=== PATIENT | female | born 1980 | race Caucasian/White ===

== ENCOUNTER 2020-06-10 05:29 | Inpatient (IN) | payer MEDICAID ==
[2020-06-03 15:42] LABS: BASOPHILS % (AUTO) 0.2 % (0-1); EOSINOPHILS # (AUTO) 0.3 X10'3 (0-0.9); EOSINOPHILS % (AUTO) 4.1 % (0-6); LYMPHOCYTES # (AUTO) 2.2 X10'3 (1.1-4.8); MEAN CORPUSCULAR HGB CONC 33.4 g/dL (33.0-36.5); MEAN PLATELET VOLUME 7.4 FL (7.4-10.4); MONOCYTES # (AUTO) 0.4 X10'3 (0-0.9); MONOCYTES % (AUTO) 5.5 % (2-12); NEUTROPHILS # (AUTO) 3.8 X10'3 (1.8-7.7); NEUTROPHILS % (AUTO) 57.2 % (42-75); PRE OP HEMATOCRIT 37.2 % (35.0-45.0); PRE OP HEMOGLOBIN 12.4 g/dL (12.0-16.0); PRE OP PLATELET COUNT 243 X10'3 (140-440); RED BLOOD COUNT 4.13 X10'6 (4.20-5.60); RED CELL DISTRIBUTION WIDTH 13.5 % (11.5-14.5)
[2020-06-03 15:55] LABS: PRE OP PROTIME 10.4 SECONDS (9.0-12.0)
[2020-06-03 16:26] LABS: ALBUMIN 3.7 G/DL (3.4-5.0); ALBUMIN/GLOBULIN RATIO 1.1 (1.1-1.5); ALKALINE PHOSPHATASE 59 IU/L (46-116); BLOOD UREA NITROGEN 16 MG/DL (7-18); BUN/CREATININE RATIO 21.9 (6.6-38.0); CALCIUM 9.2 MG/DL (8.5-10.1); CHLORIDE 106 MMOL/L (99-107); CREATININE 0.73 MG/DL (0.40-0.90); PRE OP ALT 59 U/L (30-65); PRE OP ANION GAP 8 (8-16); PRE OP AST 19 U/L (10-37); PRE OP BILIRUB, TOTAL 0.2 MG/DL (0.0-1.0); PRE OP GLUCOSE 97 MG/DL (70-104); PRE OP POTASSIUM 4.6 MMOL/L (3.4-5.1); PRE OP SODIUM 141 MMOL/L (135-145); TOTAL CARBON DIOXIDE 26.7 MMOL/L (24-32); eGFR 89 ML/MIN
[~2020-06-10] VITALS: Ht 162.6 cm; Wt 90.2 kg
[2020-06-10] VITALS (19 sets, daily range): BP systolic 112–149; BP diastolic 61–93
[~2020-06-10 05:29] MED LIST: ALBU8.5H8 INH; APIX5TAB3 PO; BUS15T PO; CHOL20004 PO; ESCI5TAB17 PO; GABA300C PO; LEVO100S PO; MULT-1085 PO; OMEP20TA23 PO
[2020-06-10] MEDS ORDERED: cefazolin/dext.iso 2gm/100ml 100 ML IV ONE (05:30)
[2020-06-10] MEDS ORDERED: famotidine 20mg tablet PO ONE (05:30)
--- NOTE | 2020-06-10 06:15 | NUR ---
Patient in room [facility]. I have received report from DOUGIE Cobos and had the opportunity to ask questions and assume patient care.
[2020-06-10] MEDS: dextrose 5%-lactated ringers 1,000 ML IV SCH ×2 (06:25→15:33)
[2020-06-10] MEDS ORDERED: BUPIVAcaine/PF 2.5 mg/ml (0.25%) 30ml vial ONE (06:36)
[2020-06-10] MEDS ORDERED: LIDOcaine 1% 30ml preserv. free vial ONE (06:36)
--- NOTE | 2020-06-10 06:56 | NUR ---
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
[2020-06-10] MEDS ORDERED: BUPIVAcaine/PF 2.5mg/ml (0.25%) 10ml vial ONE (07:03)
[2020-06-10] MEDS ORDERED: BUPIVACAINE liposomal/PF 13.3 MG/ML vial IM ONE (07:03)
[2020-06-10] MEDS ORDERED: MIDAZolam 1 MG/ML 5ML VIAL ONE (07:33)
[2020-06-10] MEDS ORDERED: rocuronium 10mg/ml inj IV ONE (07:33)
[2020-06-10] MEDS ORDERED: fentaNYL /PF 50mcg/ml 5ml ampule ONE (07:33)
[2020-06-10] MEDS ORDERED: etomidate 2mg/ml inj. ONE (07:34)
[2020-06-10] MEDS ORDERED: sevoflurane 250ml liquid IH ONE (07:38)
[2020-06-10] MEDS ORDERED: dexamethasone sod phosphate 4mg/ml inj. ONE (07:50)
[2020-06-10] MEDS ORDERED: morphine 4 MG/ML inj SYRINge IV PRN (09:10)
[2020-06-10] MEDS ORDERED: ringers solution, lacted 1,000 ML IV SCH (09:10)
[2020-06-10] MEDS ORDERED: meperidine/PF 25mg/ml syringe IV PRN ×3 (09:10)
[2020-06-10] MEDS ORDERED: proCHLORperazine 10 MG/2 ml inj IV PRN (09:10)
[2020-06-10] MEDS ORDERED: morphine 2 MG/ML inj. syringe IV PRN (09:10)
[2020-06-10] MEDS ORDERED: ondansetron/PF 4mg/2ml inj IV PRN (09:10)
[2020-06-10] MEDS ORDERED: ondansetron/PF 4mg/2ml inj ONE (11:45)
[2020-06-10] MEDS ORDERED: sugammadex 200mg/2ml injection IV ONE (11:57)
--- NOTE | 2020-06-10 12:15 | NUR ---
ADMITTED TO PACU FROM OR ACCOMPANIED BY ANESTHESIA. INTIAL PHYSICAL ASSESSMENT DONE AND RECORDED. REPORT RECEIVED FROM ANESTHESIA.
[2020-06-10] MEDS ORDERED: acetaminophen 1,000mg/100ml IV 100 ML IV ONE (12:22)
[2020-06-10] MEDS ORDERED: albuterol 2.5 MG/3 ML nebule NEB PRN (12:30)
[2020-06-10] MEDS ORDERED: CADD PCA waste documentation MC PRN (12:35)
[2020-06-10] MEDS ORDERED: naloxone 0.4 mg/ml inj IV PRN (12:35)
[2020-06-10] MEDS ORDERED: fentaNYL/PF 50MCG/1 ML 2ML syringe ONE (12:58)
[2020-06-10] MEDS: fentaNYL/PF 50MCG/1 ML 2ML syringe IV PRN ×3 (13:00→13:30)
--- NOTE | 2020-06-10 13:30 | NUR ---
PACU DISCHARGE CRITERIA MET, REPORT GIVEN TO FLOOR. DENIES PAIN OR DISCOMFORT, TRANSFERRED TO ROOM IN STABLE GOOD CONDITION.
--- NOTE | 2020-06-10 14:20 | NUR ---
Patient in room [facility]. I have received report from Minnie CONSTANTINOarmed security professional and had the opportunity to ask questions and assume patient care.
[2020-06-10] MEDS: HYDROmorphone/NS 1 mg/ml CADD 50 ML IV SCH ×7 (14:22→23:11)
[2020-06-10] MEDS: gabapentin 300mg capsule PO SCH (16:20)
--- NOTE | 2020-06-10 17:26 | NUR ---
Called Dr Lopez regarding patient has disorder Long chain fatty acid Dehydrogenase. Wanted to know if we should accu check patient, also wanted to know if he wanted me to give that extra bolus of Dilaudid Cadd he ordered prior. Received orders to hold off on 1 time bolus 0.5mg Dilaudid cadd and also received orders to Accucheck patient Q6H and to do a CK level at 1800.
[2020-06-10 18:05] LABS: CREATINE KINASE 492 U/L (26-192)
--- NOTE | 2020-06-10 18:44 | NUR ---
Problems reprioritized. Patient report given, questions answered & plan of care reviewed with Yandel CONSTANTINO.
[2020-06-10] MEDS: ketorolac tromethamine 15mg/ml inj. IV SCH (20:44)
[2020-06-10] MEDS: busPIRone 15mg tablet PO SCH (20:46)
[2020-06-10] MEDS: pantoprazole 40mg Tablet.DR PO SCH (20:46)
[2020-06-10] MEDS: enoxaparin 30mg/0.3ml syringe SUBCUT SCH (20:47)
[2020-06-11] VITALS: BP 98/58
[2020-06-11] MEDS: gabapentin 300mg capsule PO SCH ×4 (00:12→23:03)
--- NOTE | 2020-06-11 00:19 | NUR ---
patient refused to walk at this time, we had talked about her walking at midnight the hour prior and she had agreed to it. I educated her on the importance of walking, and the fact that it can help with the pain she is feeling.
--- NOTE | 2020-06-11 00:30 | NUR ---
I called surgeon to inform him of patients pain level, with the Dilaudid CADD and Toradol that had been given at 2130. Surgeon did not want to increase the CADD pump, or give another bolus. I was told to talk to patient to see if she wanted to stop the CADD pump and start oral pain medications (percocet). patient would like to think about it.
[2020-06-11] MEDS: HYDROmorphone/NS 1 mg/ml CADD 50 ML IV SCH (01:00)
--- NOTE | 2020-06-11 01:45 | NUR ---
patient is requesting to stay on CADD pump and reevaluate latr this morning. patient is resting quietly and not complaining of pain at this time Addendum: 06/11/20 at 0538 by Yandel Babcock RN *later
[2020-06-11] MEDS: ketorolac tromethamine 15mg/ml inj. IV SCH ×4 (04:30→23:08)
--- NOTE | 2020-06-11 04:30 | NUR ---
Patient has decided that she would like to try Percocet for pain. CADD pump dc'd. Patient is refusing to walk until she gets her Percocet and it takes effect.
[2020-06-11] MEDS: dextrose 5%-lactated ringers 1,000 ML IV SCH (04:35)
[2020-06-11] MEDS ORDERED: oxyCODONE/APAP 10/325mg tablet PO PRN (04:45)
[2020-06-11] MEDS: oxyCODONE/APAP 10/325mg tablet PO PRN ×4 (05:10→21:38)
[2020-06-11 06:13] LABS: BASOPHILS % (AUTO) 0.1 % (0-1); EOSINOPHILS % (AUTO) 0.3 % (0-6); HEMOGLOBIN 11.4 g/dl (12.0-16.0); LYMPHOCYTES % (AUTO) 21.6 % (21-51); MEAN CORPUSCULAR HEMOGLOBIN 30.8 PG (27.0-31.0); MEAN CORPUSCULAR HGB CONC 34.5 g/dL (33.0-36.5); MEAN CORPUSCULAR VOLUME 89.4 FL (78-98); MEAN PLATELET VOLUME 7.5 FL (7.4-10.4); MONOCYTES # (AUTO) 0.7 X10'3 (0-0.9); MONOCYTES % (AUTO) 7.8 % (2-12); NEUTROPHILS # (AUTO) 6.5 X10'3 (1.8-7.7); NEUTROPHILS % (AUTO) 70.2 % (42-75); PLATELET COUNT 257 X10'3 (140-440); RED BLOOD COUNT 3.69 X10'6 (4.20-5.60); RED CELL DISTRIBUTION WIDTH 13.6 % (11.5-14.5); WHITE BLOOD COUNT 9.3 X10'3 (4.5-11.0)
[2020-06-11 06:23] LABS: ALBUMIN 3.1 G/DL (3.4-5.0); ANION GAP 5 (8-16); BLOOD UREA NITROGEN 12 MG/DL (7-18); BUN/CREATININE RATIO 18.5 (6.6-38.0); CALCIUM 8.2 MG/DL (8.5-10.1); CHLORIDE 106 MMOL/L (99-107); CREATINE KINASE 683 U/L (26-192); CREATININE 0.65 MG/DL (0.40-0.90); GLUCOSE 109 MG/DL (70-104); POTASSIUM 3.7 MMOL/L (3.5-5.1); SODIUM 140 MMOL/L (135-145); TOTAL CARBON DIOXIDE 28.7 MMOL/L (24-32); eGFR > 90 ML/MIN
--- NOTE | 2020-06-11 06:35 | NUR ---
Problems reprioritized. Patient report given, questions answered & plan of care reviewed with DOUGIE Rose.
--- NOTE | 2020-06-11 06:35 | NUR ---
Patient in room [facility]. I have received report from Yandel CONSTANTINO and had the opportunity to ask questions and assume patient care.
[2020-06-11 06:53] VITALS: BP 108/66
--- NOTE | 2020-06-11 06:59 | NUR ---
Patient in room [facility]. I have received report from DOUGIE Humphries and had the opportunity to ask questions and assume patient care.
[2020-06-11] MEDS: pantoprazole 40mg Tablet.DR PO SCH ×2 (07:54→19:28)
[2020-06-11] MEDS: ESCITALOPRAM OXALATE 5 MG TABLET PO SCH (07:55)
[2020-06-11] MEDS: busPIRone 15mg tablet PO SCH ×2 (07:55→19:27)
[2020-06-11] MEDS: enoxaparin 30mg/0.3ml syringe SUBCUT SCH ×2 (07:57→19:28)
[2020-06-11] MEDS: LEVOCARNITINE 100 MG/ML PO SCH (08:01)
[2020-06-11] MEDS: [UNRECOGNIZED DRUG - OTHER] PO SCH (08:01)
[2020-06-11 10:09] VITALS: BP 135/77
[2020-06-11] MEDS ORDERED: LORazepam 2 mg/ml vial IV ONE (10:10)
[2020-06-11] MEDS ORDERED: LORazepam 2 mg/ml vial IV PRN (10:10)
[2020-06-11 12:50] LABS: CREATINE KINASE 867 U/L (26-192)
--- NOTE | 2020-06-11 15:04 | NUR ---
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 Per previous RD note 2019 admit following TC to Yanely Castro RD, CSP at [facility] recommends patient receive 30% of calories from fat, 15-20% of that range being long chain fats and the remainder from MCT oil ranging from 20-25 grams per day; she recommends providing fat on the lower range and even 10% if able with current condition. RD d/w RN regarding supplemental MCT oil recs as seen above; pt does not have MCT this admit and not in pharmacy at this time. RN reports TC w/ pt MD at [facility] who recommends frequent high carb intake/snacking, eating at least every 4 hours, and D10/NS for fluid maintenance. Dietary notified to send puddings between meals, gatorade/crackers TIDWM for additional carbs. Addendum: 06/11/20 at [address] Amended: Links added. 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 Per previous RD note 2019 admit following TC to Yanely Castro RD, CSP at [facility] recommends patient receive 30% of calories from fat, 15-20% of that range being long chain fats and the remainder from MCT oil ranging from 20-25 grams per day; she recommends providing fat on the lower range and even 10% if able with current condition. RD d/w RN regarding supplemental MCT oil recs as seen above; pt does not have MCT this admit and not in pharmacy at this time. RN reports TC w/ pt MD at [facility] who recommends frequent high carb intake/snacking, eating at least every 4 hours, and D10/NS for fluid maintenance. Dietary notified to send puddings between meals, gatorade/crackers TIDWM for additional carbs. RD d/w RN recommends heart healthy diet as pt currenty on regular diet in order to limit overall saturated fat intake; no cookies, cakes, brownies at this time given saturated fat content.
[2020-06-11] MEDS: ondansetron/PF 4mg/2ml inj IV PRN (15:05)
[2020-06-11] MEDS ORDERED: oxyCODONE SR 40mg (sust release) tab PO ONE (16:35)
--- NOTE | 2020-06-11 16:39 | NUR ---
Patient refused both scheduled Toradol medication today. Patient verbalized concern for her kidneys and does not want to take that medication for that reason. Patient also refuses to use her abdominal binder due to the pain it causes when trying to put it on.
[2020-06-11] MEDS ORDERED: Dextrose 10%-water IV solution 1,000 ML IV SCH (16:40)
[2020-06-11] MEDS ORDERED: DEXTROSE 50% IV SCH (17:49)
[2020-06-11] MEDS ORDERED: TOTAL PARENTERAL NUTRITION IV SCH (17:49)
[2020-06-11] MEDS ORDERED: WATER IV SCH (17:49)
--- NOTE | 2020-06-11 18:25 | NUR ---
Patient in room [facility]. I have received report from DOUGIE Rose and had the opportunity to ask questions and assume patient care.
--- NOTE | 2020-06-11 18:35 | NUR ---
Problems reprioritized. Patient report given, questions answered & plan of care reviewed with Jennifer Severino RN.
[2020-06-11] MEDS: HYDROmorphone 1 mg/ml syringe IV PRN ×2 (18:52→23:03)
[2020-06-11] MEDS: ringers solution, lacted 1,000 ML IV SCH (19:29)
[2020-06-11 20:00] VITALS: BP 144/84
[2020-06-12] MEDS: HYDROmorphone 1 mg/ml syringe IV PRN ×7 (01:43→22:42)
[2020-06-12] MEDS: ringers solution, lacted 1,000 ML IV SCH ×3 (05:40→20:31)
[2020-06-12 06:14] LABS: BASOPHILS % (AUTO) 0.1 % (0-1); EOSINOPHILS # (AUTO) 0.1 X10'3 (0-0.9); EOSINOPHILS % (AUTO) 1.5 % (0-6); HEMATOCRIT 32.6 % (35.0-45.0); HEMOGLOBIN 11.1 g/dl (12.0-16.0); LYMPHOCYTES # (AUTO) 1.7 X10'3 (1.1-4.8); LYMPHOCYTES % (AUTO) 27.4 % (21-51); MEAN CORPUSCULAR HEMOGLOBIN 30.8 PG (27.0-31.0); MEAN CORPUSCULAR VOLUME 90.6 FL (78-98); MEAN PLATELET VOLUME 7.4 FL (7.4-10.4); MONOCYTES # (AUTO) 0.6 X10'3 (0-0.9); MONOCYTES % (AUTO) 9.3 % (2-12); NEUTROPHILS # (AUTO) 3.9 X10'3 (1.8-7.7); NEUTROPHILS % (AUTO) 61.7 % (42-75); PLATELET COUNT 255 X10'3 (140-440); RED CELL DISTRIBUTION WIDTH 13.4 % (11.5-14.5); WHITE BLOOD COUNT 6.3 X10'3 (4.5-11.0)
--- NOTE | 2020-06-12 06:20 | NUR ---
Patient in room [facility]. I have received report from Tasia CONSTANTINO and had the opportunity to ask questions and assume patient care.
[2020-06-12 06:23] LABS: ALBUMIN 2.9 G/DL (3.4-5.0); ANION GAP 4 (8-16); BLOOD UREA NITROGEN 7 MG/DL (7-18); BUN/CREATININE RATIO 11.1 (6.6-38.0); CALCIUM 8.1 MG/DL (8.5-10.1); CHLORIDE 103 MMOL/L (99-107); CREATINE KINASE 1018 U/L (26-192); CREATININE 0.63 MG/DL (0.40-0.90); GLUCOSE 112 MG/DL (70-104); POTASSIUM 3.9 MMOL/L (3.5-5.1); SODIUM 139 MMOL/L (135-145); TOTAL CARBON DIOXIDE 31.8 MMOL/L (24-32); eGFR > 90 ML/MIN
--- NOTE | 2020-06-12 06:33 | NUR ---
Problems reprioritized. Patient report given, questions answered & plan of care reviewed with DOUGIE Romero.
[2020-06-12 07:30] VITALS: BP 114/68
[2020-06-12] MEDS: ketorolac tromethamine 15mg/ml inj. IV SCH ×3 (07:37→20:24)
[2020-06-12] MEDS: pantoprazole 40mg Tablet.DR PO SCH ×2 (07:44→20:23)
[2020-06-12] MEDS: ESCITALOPRAM OXALATE 5 MG TABLET PO SCH (07:45)
[2020-06-12] MEDS: gabapentin 300mg capsule PO SCH ×3 (07:45→23:47)
[2020-06-12] MEDS: busPIRone 15mg tablet PO SCH ×2 (07:45→20:23)
[2020-06-12] MEDS: enoxaparin 30mg/0.3ml syringe SUBCUT SCH ×2 (07:46→20:23)
[2020-06-12] MEDS: oxyCODONE SR 40mg (sust release) tab PO SCH ×2 (07:50→20:23)
[2020-06-12] MEDS: LEVOCARNITINE 100 MG/ML PO SCH (07:53)
[2020-06-12] MEDS: [UNRECOGNIZED DRUG - OTHER] PO SCH (07:53)
--- NOTE | 2020-06-12 12:00 | NUR ---
patient believes her IV is infiltrated, assessed the site. it is a little tender with initial flush but able to flush with ease and draw back blood with ease. Paged PICC RN to come start a new PIV or a midline. I discussed with her that while we are waiting for the PICC RN to get to the floor I would be more than willing to start a new PIV and/or call around to get someone to start an IV. She replied "no i will wait for the picc nurse" .. I then went to break and came back from break to a phone number for [facility], and was notified that patient has been calling around saying that nothing is being done for her. As i went into the room PICC RN was already at bedside. Checked her blood glucose level it is 100. patient is still unhappy with her care
[2020-06-12 12:12] VITALS: BP 127/77
--- NOTE | 2020-06-12 12:20 | NUR ---
patient asked the state tested nursing assistant if she could have pain medication before she got her midline inserted. I pulled out percocet per MD orders from the [facility]. Patient refused this medication saying she wanted Dilaudid. I explained to her that if her IV is truly infiltrated it would be pointless to give IV pain medication. She is no longer in need of pain medication because she will not take PO. will continue to monitor.
--- NOTE | 2020-06-12 13:06 | NUR ---
4F SINGLE LUMEN MIDLINE PLACEMENT TO RIGHT BASILIC VEIN, X1 WITH SUCCESS ATTEMPT USING ULTRASOUND GUIDANCE, TIP ENDS MID-AXILLARY.
[2020-06-12] MEDS: ondansetron/PF 4mg/2ml inj IV PRN (15:30)
[2020-06-12 18:00] VITALS: BP 118/67
--- NOTE | 2020-06-12 18:09 | NUR ---
Problems reprioritized. Patient report given, questions answered & plan of care reviewed with DOUGIE hahn.
[2020-06-13] VITALS: BP 127/61
[2020-06-13] MEDS: HYDROmorphone 1 mg/ml syringe IV PRN ×7 (02:08→23:41)
[2020-06-13] MEDS: metoclopramide 5 mg/ml inj IV SCH ×4 (02:08→19:17)
--- NOTE | 2020-06-13 06:05 | NUR ---
Patient in room [facility]. I have received report from DOUGIE Hale and had the opportunity to ask questions and assume patient care.
--- NOTE | 2020-06-13 06:14 | NUR ---
Problems reprioritized. Patient report given, questions answered & plan of care reviewed with Ivania CONSTANTINO. Addendum: 06/13/20 at 0615 by Alexia Abdullahi RN Amended: Links added.
[2020-06-13 06:30] VITALS: BP 111/59
[2020-06-13 07:51] LABS: BASOPHILS % (AUTO) 0.3 % (0-1); EOSINOPHILS # (AUTO) 0.2 X10'3 (0-0.9); EOSINOPHILS % (AUTO) 2.7 % (0-6); HEMATOCRIT 28.2 % (35.0-45.0); HEMOGLOBIN 9.9 g/dl (12.0-16.0); LYMPHOCYTES % (AUTO) 32.1 % (21-51); MEAN CORPUSCULAR HEMOGLOBIN 31.3 PG (27.0-31.0); MEAN CORPUSCULAR VOLUME 89.4 FL (78-98); MEAN PLATELET VOLUME 7.6 FL (7.4-10.4); MONOCYTES # (AUTO) 0.6 X10'3 (0-0.9); MONOCYTES % (AUTO) 9.2 % (2-12); NEUTROPHILS # (AUTO) 3.4 X10'3 (1.8-7.7); NEUTROPHILS % (AUTO) 55.7 % (42-75); PLATELET COUNT 235 X10'3 (140-440); RED BLOOD COUNT 3.15 X10'6 (4.20-5.60); RED CELL DISTRIBUTION WIDTH 13.5 % (11.5-14.5); WHITE BLOOD COUNT 6.2 X10'3 (4.5-11.0)
[2020-06-13 08:23] LABS: ALBUMIN 2.7 G/DL (3.4-5.0); ANION GAP 7 (8-16); BLOOD UREA NITROGEN 4 MG/DL (7-18); BUN/CREATININE RATIO 6.3 (6.6-38.0); CALCIUM 8.1 MG/DL (8.5-10.1); CHLORIDE 105 MMOL/L (99-107); CREATININE 0.64 MG/DL (0.40-0.90); GLUCOSE 99 MG/DL (70-104); POTASSIUM 3.5 MMOL/L (3.5-5.1); SODIUM 141 MMOL/L (135-145); TOTAL CARBON DIOXIDE 29.4 MMOL/L (24-32); eGFR > 90 ML/MIN
[2020-06-13] MEDS: ESCITALOPRAM OXALATE 5 MG TABLET PO SCH (09:07)
[2020-06-13] MEDS: gabapentin 300mg capsule PO SCH ×3 (09:07→23:40)
[2020-06-13] MEDS: busPIRone 15mg tablet PO SCH ×2 (09:07→19:17)
[2020-06-13] MEDS: oxyCODONE SR 40mg (sust release) tab PO SCH ×2 (09:07→19:17)
[2020-06-13] MEDS: pantoprazole 40mg Tablet.DR PO SCH ×2 (09:08→19:17)
[2020-06-13] MEDS: ketorolac tromethamine 15mg/ml inj. IV SCH (09:09)
[2020-06-13] MEDS: LEVOCARNITINE 100 MG/ML PO SCH (09:10)
[2020-06-13] MEDS: enoxaparin 30mg/0.3ml syringe SUBCUT SCH ×2 (09:10→19:18)
[2020-06-13] MEDS: [UNRECOGNIZED DRUG - OTHER] PO SCH (09:10)
[2020-06-13] MEDS: ringers solution, lacted 1,000 ML IV SCH ×2 (10:09→22:00)
[2020-06-13] MEDS ORDERED: WATER IV SCH (10:50)
[2020-06-13] MEDS ORDERED: WATER DEXTROSE IV SCH (10:50)
[2020-06-13] MEDS ORDERED: DEXTROSE IV SCH (10:50)
[2020-06-13 11:00] VITALS: BP 109/60
[2020-06-13] MEDS ORDERED: methylnaltrexone br 12mg/0.6ml inj***SubQ only SQ ONE (11:05)
[2020-06-13] MEDS: DEXTROSE 20% IN WATER 500mL 500 ML IV SCH ×2 (13:06→21:59)
[2020-06-13 18:00] VITALS: BP 130/74
--- NOTE | 2020-06-13 18:35 | NUR ---
Problems reprioritized. Patient report given, questions answered & plan of care reviewed with DOUGIE Peterson.
--- NOTE | 2020-06-13 18:35 | NUR ---
Patient in room [facility]. I have received report from Ivania CONSTANTINO and had the opportunity to ask questions and assume patient care.
[2020-06-14] VITALS: BP 110/65
[2020-06-14] MEDS: metoclopramide 5 mg/ml inj IV SCH ×3 (01:53→07:49)
[2020-06-14] MEDS: HYDROmorphone 1 mg/ml syringe IV PRN ×3 (02:18→08:30)
[2020-06-14] MEDS: DEXTROSE 20% IN WATER 500mL 500 ML IV SCH (04:47)
[2020-06-14 05:45] LABS: BASOPHILS % (AUTO) 0.4 % (0-1); EOSINOPHILS # (AUTO) 0.3 X10'3 (0-0.9); EOSINOPHILS % (AUTO) 5.4 % (0-6); HEMATOCRIT 28.5 % (35.0-45.0); HEMOGLOBIN 9.6 g/dl (12.0-16.0); LYMPHOCYTES # (AUTO) 1.7 X10'3 (1.1-4.8); MEAN CORPUSCULAR HEMOGLOBIN 30.4 PG (27.0-31.0); MEAN CORPUSCULAR HGB CONC 33.8 g/dL (33.0-36.5); MEAN CORPUSCULAR VOLUME 89.8 FL (78-98); MEAN PLATELET VOLUME 7.8 FL (7.4-10.4); MONOCYTES # (AUTO) 0.4 X10'3 (0-0.9); MONOCYTES % (AUTO) 8.3 % (2-12); NEUTROPHILS # (AUTO) 2.7 X10'3 (1.8-7.7); NEUTROPHILS % (AUTO) 52.9 % (42-75); PLATELET COUNT 217 X10'3 (140-440); RED BLOOD COUNT 3.17 X10'6 (4.20-5.60); RED CELL DISTRIBUTION WIDTH 13.4 % (11.5-14.5); WHITE BLOOD COUNT 5.1 X10'3 (4.5-11.0)
[2020-06-14 05:47] LABS: ALBUMIN 2.6 G/DL (3.4-5.0); ANION GAP 7 (8-16); BLOOD UREA NITROGEN 7 MG/DL (7-18); BUN/CREATININE RATIO 11.7 (6.6-38.0); CALCIUM 8.2 MG/DL (8.5-10.1); CHLORIDE 104 MMOL/L (99-107); GLUCOSE 117 MG/DL (70-104); POTASSIUM 3.5 MMOL/L (3.5-5.1); SODIUM 142 MMOL/L (135-145); TOTAL CARBON DIOXIDE 31.1 MMOL/L (24-32); eGFR > 90 ML/MIN
--- NOTE | 2020-06-14 06:09 | NUR ---
Problems reprioritized. Patient report given, questions answered & plan of care reviewed with Ivania Rn.
--- NOTE | 2020-06-14 06:10 | NUR ---
Patient in room [facility]. I have received report from DOUGIE Peterson and had the opportunity to ask questions and assume patient care.
[2020-06-14 06:30] VITALS: BP 130/73
[2020-06-14] MEDS: ESCITALOPRAM OXALATE 5 MG TABLET PO SCH (07:49)
[2020-06-14] MEDS: gabapentin 300mg capsule PO SCH (07:49)
[2020-06-14] MEDS: pantoprazole 40mg Tablet.DR PO SCH (07:49)
[2020-06-14] MEDS: busPIRone 15mg tablet PO SCH (07:50)
[2020-06-14] MEDS: oxyCODONE SR 40mg (sust release) tab PO SCH (07:50)
[2020-06-14] MEDS: LEVOCARNITINE 100 MG/ML PO SCH (07:55)
[2020-06-14] MEDS: [UNRECOGNIZED DRUG - OTHER] PO SCH (07:55)
[2020-06-14] MEDS: enoxaparin 30mg/0.3ml syringe SUBCUT SCH (08:00)
--- NOTE | 2020-06-14 09:51 | NUR ---
Dr Giron rounded. Pt stated she's "ready to go home". MD assessed pt to be stable for DC'g. Pt to f/u w/ Dr. Lopez on Tuesday and was instructed to call Tuesday to confirm appt time. Pt may keep wds open to air, may shower, eat regular diet as she desires, and no lifting, pushing or pulling items greater than 10 lbs until f/u w/ Dr. Lopez. Oxycodone 40mg 1 tab PO q 12H #20 is being called in to [place] on , per MD. Pt denied further questions.
[2020-06-14 11:00] VITALS: BP 125/72
[2020-06-14] MEDS ORDERED: OXYC20TA40 PO (12:33)
[2020-06-14] MEDS ORDERED: OXYC15TA PO (12:42)
[2020-06-14] MEDS: oxyCODONE/APAP 10/325mg tablet PO PRN (13:30)
== END 2020-06-14 13:42 | disposition home or self-care (01) | DRG 227 ==
LOC: PAS 05:29 → SUR 3N 12:34
PROVIDERS: ADMIT Surgery; ATTEND Surgery
PROC: 8E0W4CZ Robotic Assisted Procedure of Trunk Region, Percutaneous Endoscopic Approach (ICD-10-PCS; 2020-06-10)
PROC: 0DNE4ZZ Release Large Intestine, Percutaneous Endoscopic Approach (ICD-10-PCS; 2020-06-10)
PROC: 0DN84ZZ Release Small Intestine, Percutaneous Endoscopic Approach (ICD-10-PCS; 2020-06-10)
PROC: 0DNU4ZZ Release Omentum, Percutaneous Endoscopic Approach (ICD-10-PCS; 2020-06-10)
PROC: 0WUF4JZ Supplement Abdominal Wall with Synthetic Substitute, Percutaneous Endoscopic Approach (ICD-10-PCS; principal; 2020-06-10 07:38)
DX: K43.0 Incisional hernia with obstruction, without gangrene (principal); G62.9 Polyneuropathy, unspecified; E03.9 Hypothyroidism, unspecified; I10 Essential (primary) hypertension; F32.9 Major depressive disorder, single episode, unspecified; F41.9 Anxiety disorder, unspecified; K66.0 Peritoneal adhesions (postprocedural) (postinfection); Z86.711 Personal history of pulmonary embolism; Z93.1 Gastrostomy status; Z88.8 Allergy status to other drugs, medicaments and biological substances; Z79.899 Other long term (current) drug therapy; K56.7 Ileus, unspecified
CPT/HCPCS: 36415; 71046; 76937; 80048; 80053; 82550; 82948; 85025; 85610; 85730; 93005; 93306; 94760; A4215; A4618; C1713; C1781; C9290; C9399; G0378; J0131; J1100; J1170; J1650; J1885; J2001; J2060; J2175; J2212; J2250; J2405; J2765; J3010; J3490; J7120; J7121; U0003

== ENCOUNTER 2021-07-14 10:52 | Day surgery (SDC) | payer MEDICARE, MEDICAID ==
[2021-07-13 17:08] LABS: BASOPHILS % (AUTO) 0.2 % (0-1); EOSINOPHILS # (AUTO) 0.3 X10'3 (0-0.9); EOSINOPHILS % (AUTO) 4.1 % (0-6); LYMPHOCYTES # (AUTO) 2.6 X10'3 (1.1-4.8); LYMPHOCYTES % (AUTO) 40.2 % (21-51); MEAN CORPUSCULAR HEMOGLOBIN 29.9 PG (27.0-31.0); MEAN CORPUSCULAR HGB CONC 33.8 g/dL (33.0-36.5); MEAN CORPUSCULAR VOLUME 88.4 FL (78-98); MEAN PLATELET VOLUME 8.1 FL (7.4-10.4); MONOCYTES # (AUTO) 0.4 X10'3 (0-0.9); MONOCYTES % (AUTO) 6.2 % (2-12); NEUTROPHILS # (AUTO) 3.2 X10'3 (1.8-7.7); NEUTROPHILS % (AUTO) 49.3 % (42-75); PRE OP HEMATOCRIT 34.8 % (35.0-45.0); PRE OP HEMOGLOBIN 11.8 g/dL (12.0-16.0); PRE OP PLATELET COUNT 243 X10'3 (140-440); RED BLOOD COUNT 3.94 X10'6 (4.20-5.60); RED CELL DISTRIBUTION WIDTH 12.9 % (11.5-14.5)
[2021-07-13 17:25] LABS: ALBUMIN 3.8 G/DL (3.4-5.0); ALBUMIN/GLOBULIN RATIO 1.2 (1.1-1.5); ALKALINE PHOSPHATASE 43 IU/L (46-116); BLOOD UREA NITROGEN 13 MG/DL (7-18); CALCIUM 9.1 MG/DL (8.5-10.1); CHLORIDE 104 MMOL/L (99-107); CREATININE 0.81 MG/DL (0.40-0.90); PRE OP ALT 30 U/L (30-65); PRE OP ANION GAP 8 (8-16); PRE OP AST 15 U/L (10-37); PRE OP BILIRUB, TOTAL 0.3 MG/DL (0.0-1.0); PRE OP GLUCOSE 96 MG/DL (70-104); PRE OP POTASSIUM 3.8 MMOL/L (3.4-5.1); PRE OP SODIUM 141 MMOL/L (135-145); TOTAL CARBON DIOXIDE 28.9 MMOL/L (24-32); eGFR 78 ML/MIN
[2021-07-14] VITALS (10 sets, daily range): BP systolic 107–121; BP diastolic 68–83
[~2021-07-14] VITALS: Ht 162.6 cm; Wt 75.3 kg
[~2021-07-14 10:52] MED LIST changes: -ALBU8.5H8 INH; -APIX5TAB3 PO; -BUS15T PO; +BUSP15TA7 PO; -CHOL20004 PO; +ESCI20TA39 PO; -ESCI5TAB17 PO; +FAMO20TA8 PO; -LEVO100S PO; -MULT-1085 PO; -OMEP20TA23 PO; +ceFAZolin inj. 2,000 MG in dextrose 5%-water 100 ML IV ONE; +ringers solution, lacted 1,000 ML IV SCH
[2021-07-14] MEDS ORDERED: famotidine 20mg tablet PO ONE (11:15)
[2021-07-14] MEDS: famotidine 20mg tablet PO ONE ×2 (11:29→11:32)
[2021-07-14] MEDS ORDERED: dextrose 5%-lactated ringers 1,000 ML IV SCH (12:00)
[2021-07-14] MEDS ORDERED: meperidine/PF 25mg/ml syringe IV PRN ×2 (12:15)
[2021-07-14] MEDS ORDERED: ondansetron/PF 4mg/2ml inj IV PRN (12:15)
[2021-07-14] MEDS ORDERED: morphine 4 MG/ML inj SYRINge IV PRN (12:15)
[2021-07-14] MEDS ORDERED: ringers solution, lacted 1,000 ML IV SCH (12:15)
[2021-07-14] MEDS ORDERED: morphine 2 MG/ML inj. syringe IV PRN (12:15)
[2021-07-14] MEDS ORDERED: LIDOcaine 1% 30ml preserv. free vial ONE (12:34)
[2021-07-14] MEDS ORDERED: BUPIVAcaine 0.5% inj/PF 30 ML ONE (12:34)
[2021-07-14] MEDS ORDERED: sevoflurane 250ml liquid IH ONE (12:52)
[2021-07-14] MEDS ORDERED: dexamethasone sod phosphate 10mg/ml inj ONE (12:52)
[2021-07-14] MEDS ORDERED: midazolam 1 mg/ML 2ml injection ONE (12:59)
[2021-07-14] MEDS ORDERED: fentaNYL/PF 50MCG/1 ML 2ML syringe ONE (12:59)
[2021-07-14] MEDS ORDERED: etomidate 2mg/ml inj. ONE (13:01)
[2021-07-14] MEDS ORDERED: LIDOcaine 1%/PF 5ML 10 MG/ML VIAL ONE (13:01)
[2021-07-14] MEDS ORDERED: BUPIVAcaine 0.5% inj/PF 30 ml vial IJ ONE (13:21)
[2021-07-14] MEDS ORDERED: ondansetron/PF 4mg/2ml inj ONE (14:17)
--- NOTE | 2021-07-14 14:26 | NUR ---
Received from OR via [facility], accompanied by Anesthesiologist DR OLIVIA and report given by Anesthesiologist AND CHIP TUNER. PT AWAKE, DENIES PAIN. ABDOMINAL BINDER ON AND COVERING READING CLEMENT RUANO. Addendum: 07/14/21 at 1518 by Jane Jorgensen RN Amended: Links added.
[2021-07-14] MEDS ORDERED: HYDROcodone/acetaminophen 5mg/325mg tablet PO PRN (14:35)
[2021-07-14] MEDS: meperidine/PF 25mg/ml syringe IV PRN ×2 (14:42→14:59)
--- NOTE | 2021-07-14 15:56 | NUR ---
PT UP, VOIDED, ABLE TO AMBULATE SAFELY. PAIN 04/09, STATES IS COMFORTABLE. D/C INSTRUCTIONS GIVEN AND GONE OVER W/PT WHO VERBALIZED UNDERSTANDING. PT D/CD TO HOME VIA W/C TO PRIVATE VEHICLE W/O INCIDENT. Addendum: 07/14/21 at 1639 by Jane Jorgensen RN Amended: Links added.
== END 2021-07-14 15:56 | disposition home or self-care (01) ==
LOC: PAS 10:52
PROVIDERS: ATTEND Surgery
DX: L91.0 Hypertrophic scar (principal); J45.909 Unspecified asthma, uncomplicated; F41.9 Anxiety disorder, unspecified; E71.310 Long chain/very long chain acyl CoA dehydrogenase deficiency; Z79.899 Other long term (current) drug therapy; Z88.8 Allergy status to other drugs, medicaments and biological substances; Z90.79 Acquired absence of other genital organ(s); Z98.890 Other specified postprocedural states; Z86.711 Personal history of pulmonary embolism; Z72.89 Other problems related to lifestyle; R20.8 Other disturbances of skin sensation
CPT/HCPCS: 11406; 12037; 36415; 80053; 82948; 85025; J0690; J1100; J2175; J2250; J2270; J2405; J3010; J3490; J7030; J7060; J7120; J7121; S0020; Z7506; Z7508; Z7512; A4215; A4618; A6253; A7000